=== PATIENT | female | born 1980 | race African-American/Black ===

== ENCOUNTER 2017-01-06 02:30 | Emergency (ER) | payer OTHER ==
[~2017-01-06] VITALS: Ht 167.6 cm; Wt 67.1 kg
[~2017-01-06 02:30] MED LIST: AMOXICILLIN500 MG PO; ELAVIL10 MG PO; HYDROCODON-ACE1 EACH; IBUPROFEN800 MG; MOTRIN800 MG PO; NAPROXEN500 MG PO; NOHOMEMEDS; OXYCODONE HCL15 MG; OXYCODONE HCL30 MG; OXYCODONE HCL5 MG; TRAMADOL HCL50 MG; VIIBRYD20 MG; VOLTAREN75 MG
[2017-01-06] MEDS ORDERED: NORCO 5/3251 TABLET PO (05:24)
[2017-01-06] MEDS ORDERED: ERYTHROMYC1 APPLICAT RIGHT EYE (05:24)
[2017-01-06 05:49] VITALS: BP 137/85
== END 2017-01-06 05:49 | disposition home or self-care (01) ==
LOC: EME 02:30
DX: S05.01XA Injury of conjunctiva and corneal abrasion without foreign body, right eye, initial encounter (principal); H05.20 Unspecified exophthalmos; Y04.2XXA Assault by strike against or bumped into by another person, initial encounter; F17.200 Nicotine dependence, unspecified, uncomplicated
CPT/HCPCS: 70486; 99281; 99284